=== PATIENT | female | born 1980 | race African-American/Black ===

== ENCOUNTER 2017-04-03 10:30 | Emergency (ER) | payer BC ==
[2017-04-03 10:43] VITALS: BP 129/80; PULSE 100; TEMP 99.1; BMI 38.7
[2017-04-03] MEDS ORDERED: ALBUTEROL SO4 0.083% IH SOL 2.5 MG/3 ML VIAL.NEB. NEB ONE (11:19)
[2017-04-03] MEDS ORDERED: ACETAMINOPHEN 325 MG TABLET (FP) PO ONE (11:19)
--- NOTE | 2017-04-03 11:25 | PDOC ---
History of Present Illness - General Chief Complaint: Cold Symptoms Stated Complaint: FEVER/HEADACHE/COUGHING Time Seen by Provider: 04/03/17 11:07 History Source: Patient Exam Limitations: No Limitations - History of Present Illness Initial Comments: 04/03/17 11:20 37 yr female no PMHX or surgical history with sore throat cough fever headache for 1 day, states felt body aches yesterday . no vomiting no urinary complaints. Severity: reports: mild Past History - Past Medical History Allergies/Adverse Reactions: Allergies Allergy/AdvReac Type Severity Reaction Status Date / Time RAISIN Allergy SWELLING Uncoded 04/03/17 10:39 THROAT CLOSES Home Medications: Ambulatory Orders Benzonatate [Tessalon Pearls -] 100 mg PO TID PRN #21 capsule 04/03/17 Benzonatate [Tessalon Pearls -] 100 mg PO TID PRN #21 capsule 04/03/17 Oseltamivir Phosphate [Tamiflu] 75 mg PO BID #10 capsule 04/03/17 Oseltamivir Phosphate [Tamiflu] 75 mg PO BID #10 capsule 04/03/17 COPD: No Psychiatric Problems: Yes (ANXIETY.) - Immunization History Immunization Up to Date: Yes - Suicide/Smoking/Psychosocial Hx Smoking Status: No Smoking History: Never smoked Have you smoked in the past 12 months: No Number of Cigarettes Smoked Daily: 0 Cigars Per Day: 0 Hx Alcohol Use: No Drug/Substance Use Hx: No Substance Use Type: None Hx Substance Use Treatment: No Respiratory Specific PMHX - Complaint Specific PMHX Angina: No Bronchitis: No Pneumonia: No Pulmonary Embolus: No TB (Tuberculosis): No Review of Systems - Review of Systems Able to Perform ROS?: Yes Is the patient limited Icelandic proficient: No Constitutional: Yes: Symptoms Reported, Fever HEENTM: Yes: Throat Pain Respiratory: Yes: Cough : No: Symptoms Reported Musculoskeletal: No: Symptoms Reported Integumentary: No: Symptoms Reported Neurological: No: Symptoms reported *Physical Exam - Vital Signs Last Vital Signs Temp Pulse Resp BP Pulse Ox 99.1 F 100 H 19 129/80 97 04/03/17 10:39 04/03/17 10:39 04/03/17 10:39 04/03/17 10:39 04/03/17 10:39 - Physical Exam General Appearance: Yes: Nourished, Appropriately Dressed HEENT: positive: EOMI, SNEHA, TMs Normal, Pharyngeal Erythema, Nasal Congestion. negative: Tonsillar Exudate, Tonsillar Erythema Neck: positive: Supple. negative: Tender, Lymphadenopathy (R), Lymphadenopathy (L) Respiratory/Chest: positive: Lungs Clear, Normal Breath Sounds. negative: Chest Tender Cardiovascular: positive: Regular Rhythm, Regular Rate Gastrointestinal/Abdominal: positive: Normal Bowel Sounds, Soft Musculoskeletal: positive: Normal Inspection Extremity: positive: Normal Capillary Refill, Normal Inspection, Normal Range of Motion Integumentary: positive: Normal Color, Dry, Warm Neurologic: positive: Fully Oriented, Alert, Normal Mood/Affect, Normal Response , Motor Strength 07/25 Medical Decision Making - Medical Decision Making 04/03/17 11:23 cc: sore throat cough headache fever non toxic pt took 600mg ibuprofen at 9am for 101 fever most likely flu virus pt did not have the flu shot pt is able to eat and drink *DC/Admit/Observation/Transfer Diagnosis at time of Disposition: Flu-like symptoms, Cough - Discharge Dispostion Disposition: HOME Condition at time of disposition: Good - Prescriptions Prescriptions: Benzonatate [Tessalon Pearls -] 100 mg PO TID PRN #21 capsule PRN Reason: Cough Benzonatate [Tessalon Pearls -] 100 mg PO TID PRN #21 capsule PRN Reason: Cough Oseltamivir Phosphate [Tamiflu] 75 mg PO BID #10 capsule Oseltamivir Phosphate [Tamiflu] 75 mg PO BID #10 capsule - Referrals Referrals: Christian Page MD [Primary Care Provider] - - Patient Instructions Additional Instructions: stay at home and rest avoid crowds and small children take the medication as prescribed increase vitamin C and zinc in your diet take ibuprofen (over the counter motrin, advil or ibuprofen 600mg every 6hrs for fever, body aches and headaches) follow with your primary care doctor in 2-3 days if not improving or worse return to ER for any worsening symptoms or concerns - Post Discharge Activity Forms/Work/School Notes: Back to Work
== END 2017-04-03 12:40 | disposition home or self-care (01) ==
LOC: JERFT 10:30
PROC: 3E0F7GC Introduction of Other Therapeutic Substance into Respiratory Tract, Via Natural or Artificial Opening (ICD-10-PCS; principal; 2017-04-03)
DX: J11.1 Influenza due to unidentified influenza virus with other respiratory manifestations (principal); F41.9 Anxiety disorder, unspecified
CPT/HCPCS: 87070; 87430; 99281-25

== ENCOUNTER 2017-05-04 06:51 | Emergency (ER) | payer BC ==
[2017-05-04 07:10] VITALS: BMI 38.7
[2017-05-04] MEDS ORDERED: ACETAMINOPHEN 1000 MG/100 ML VIAL (NON FORMULARY) IVPB ONE (08:24)
[2017-05-04] MEDS ORDERED: SODIUM CHLORIDE 1,000 ML IV STA (08:24)
[2017-05-04] MEDS ORDERED: OSELTAMIVIR PHOSPHATE 75 MG CAPSULE PO ONE (08:25)
--- NOTE | 2017-05-04 08:37 | PDOC ---
History of Present Illness - General Chief Complaint: Shortness of Breath Stated Complaint: DIFFICULTY BREATHING Time Seen by Provider: 05/04/17 07:11 - History of Present Illness Initial Comments: 05/04/17 08:34 "The patient is a 37 year old female, with a significant past medical history of anxiety, who presents to the emergency department with diffuse body aches, fever, and sore throat since 11PM last night. She states she drank lemon with cain and garlic last night without relief of her symptoms. She reports her throat is slightly sore, but states her muscle aches are worse. She states she had the flu about 3 weeks ago and took Tamiflu and Tylenol with resolution of her symptoms. She states her symptoms today are similar. The patient denies chest pain and dizziness. The patient denies fever, chills, nausea, vomit, diarrhea and constipation. The patient denies dysuria, frequency, urgency and hematuria. Allergies: NKDA Past surgical history: none reported Social history: Pt denies toxic habits " Past History - Past Medical History Allergies/Adverse Reactions: Allergies Allergy/AdvReac Type Severity Reaction Status Date / Time No Known Drug Allergies Allergy Verified 05/04/17 07:07 RAISIN Allergy SWELLING Uncoded 04/03/17 10:39 THROAT CLOSES Home Medications: Ambulatory Orders Benzonatate [Tessalon Pearls -] 100 mg PO TID PRN #21 capsule 04/03/17 Benzonatate [Tessalon Pearls -] 100 mg PO TID PRN #21 capsule 04/03/17 Oseltamivir Phosphate [Tamiflu] 75 mg PO BID #10 capsule 04/03/17 Oseltamivir Phosphate [Tamiflu] 75 mg PO BID #10 capsule 04/03/17 COPD: No Psychiatric Problems: Yes (Anxiety) - Immunization History Immunization Up to Date: Yes - Suicide/Smoking/Psychosocial Hx Smoking Status: No Smoking History: Never smoked Have you smoked in the past 12 months: No Number of Cigarettes Smoked Daily: 0 Cigars Per Day: 0 Information on smoking cessation initiated: No Hx Alcohol Use: No Drug/Substance Use Hx: No Substance Use Type: None Hx Substance Use Treatment: No Respiratory Specific PMHX - Complaint Specific PMHX Angina: No Bronchitis: No Pneumonia: No Pulmonary Embolus: No TB (Tuberculosis): No Review of Systems - Review of Systems Comments:: 05/04/17 08:36 """GENERAL/CONSTITUTIONAL: No fever or chills. No weakness. HEAD, EYES, EARS, NOSE AND THROAT: (+) sore throat. No change in vision. No ear pain or discharge. CARDIOVASCULAR: No chest pain or shortness of breath. RESPIRATORY: No SOB. No cough, wheezing, or hemoptysis. GASTROINTESTINAL: No nausea, vomiting, diarrhea or constipation. GENITOURINARY: No dysuria, frequency, or change in urination. MUSCULOSKELETAL: (+) diffuse muscle aches. No joint or muscle swelling. No neck or back pain. SKIN: No rash NEUROLOGIC: No headache, No vertigo, loss of consciousness, or change in strength/sensation. ENDOCRINE: No increased thirst. No abnormal weight change. HEMATOLOGIC/LYMPHATIC: No anemia, easy bleeding, or history of blood clots. ALLERGIC/IMMUNOLOGIC: No hives or skin allergy. """ *Physical Exam - Vital Signs Last Vital Signs Temp Pulse Resp BP Pulse Ox 99.7 F H 108 H 20 80/42 95 05/04/17 07:08 05/04/17 07:08 05/04/17 07:08 05/04/17 07:08 05/04/17 07:08 - Physical Exam Comments: 05/04/17 08:36 """GENERAL: Awake, alert, and fully oriented, in no acute distress HEAD: No signs of trauma EYES: PERRLA, EOMI, sclera anicteric, conjunctiva clear ENT: Auricles normal inspection, hearing grossly normal, nares patent, oropharynx clear without exudates. Moist mucosa NECK: Nontender, no stepoffs, Normal ROM, supple, no lymphadenopathy, JVD, or masses LUNGS: Breath sounds equal, clear to auscultation bilaterally. No wheezes, and no crackles HEART: Regular rate and rhythm, normal S1 and S2, no murmurs, rubs or gallops ABDOMEN: Soft, nontender, normoactive bowel sounds. No guarding, no rebound. No masses EXTREMITIES: Normal range of motion, no edema. No clubbing or cyanosis. No cords, erythema, or tenderness NEUROLOGICAL: Cranial nerves II through XII intact. 5/5 strength and sensation in all extremities, Normal speech, normal gait SKIN: Warm, Dry, normal turgor, no rashes or lesions noted. """ ED Treatment Course - LABORATORY CBC & Chemistry Diagram: 05/04/17 08:44 05/04/17 08:44 Medical Decision Making - Medical Decision Making 05/04/17 08:36 37 F with bodyaches, sore throat, fever. Likely flu vs viral URI. Will r/o strep given pharyngitis and fever. - Labs, rapid strep/throat culture - IVF, tylenol - No more flu swabs available in ED, will empirically tx with tamiflu as symptoms began < 24 hours ago 05/04/17 09:21 Labs wnl Rapid strep + Discussed tx options with pt, who opts for penicillin G IM. Pt well appearing, tolerating PO. clinically stable for DC. Pt requesting new PMD, will provide phone number for internal medicine I discussed the physical exam findings, ancillary test results and final diagnoses with the patient. I answered all of the patient's questions. The patient was satisfied with the care received and felt comfortable with the discharge plan and treatment plan. The patient agrees to follow up with the primary care physician within 24-72 hours. *DC/Admit/Observation/Transfer Diagnosis at time of Disposition: Strep pharyngitis - Discharge Dispostion Disposition: HOME - Referrals Referrals: Christian Page MD [Primary Care Provider] - Rusty Mcallister MD [Staff Physician] - - Patient Instructions Printed Discharge Instructions: DI for Strep Throat Additional Instructions: You have strep throat. We gave you a shot of penicillin to treat it. If you continue to feel ill after 48 hours, or if you have worsening pain, fevers, or any other concerning symptoms, return to the ER immediately. Otherwise, follow up with your primary care doctor within 1 week for a check up. You can call the number provided to make an appointment with our internal medicine clinic. - Post Discharge Activity Forms/Work/School Notes: Back to Work - Attestations Physician Attestion: 05/04/17 09:24 I, Dr. Scar Sanchez MD, attest that this document has been prepared under my direction and personally reviewed by me in its entirety. I further attest, that it accurately reflects all work, treatment, procedures and medical decision -making performed by me.
[2017-05-04] MEDS ORDERED: OSELTAMIVIR PHOSPHATE 75 MG CAPSULE ONE (08:49)
[2017-05-04 08:50] LABS: BASO % 0.2 % (0-2.0); EOS % 0.2 % (0-4.5); HEMATOCRIT 39.6 % (32.4-45.2); HEMOGLOBIN 12.9 GM/dL (10.7-15.3); LYMPH % 6.8 % (8-40); MCH 27.2 pg (25.7-33.7); MCHC 32.5 g/dl (32.0-36.0); MEAN CELL VOLUME 83.7 fl (80-96); MEAN PLT VOLUME 8.1 fl (7.5-11.1); MONO % 5.6 % (3.8-10.2); NEUT % 87.2 % (42.8-82.8); PLATELET COUNT 282 K/MM3 (134-434); RBC 4.73 M/mm3 (3.60-5.2); RDW 14.1 % (11.6-15.6); WHITE BLOOD COUNT 13.1 K/mm3 (4.0-10.0)
[2017-05-04] MEDS ORDERED: ACETAMINOPHEN INJECTION 100 ML IVPB ONE (08:50)
[2017-05-04 09:15] LABS: ALBUMIN 3.9 g/dl (3.4-5.0); ALK PHOS 62 U/L (45-117); ANION GAP 8 (8-16); BILIRUBIN,TOTAL 0.4 mg/dL (0.2-1.0); BLOOD UREA NITROGEN 11 mg/dL (7-18); CALCIUM 8.5 mg/dL (8.5-10.1); CHLORIDE 103 mmol/L (98-107); CO2 23 mmol/L (21-32); CREATININE 0.8 mg/dL (0.55-1.02); GLUCOSE,RANDOM 89 mg/dL (74-106); POTASSIUM 4.2 mmol/L (3.5-5.1); SGOT/AST 23 U/L (15-37); SGPT/ALT 35 U/L (12-78); SODIUM 134 mmol/L (136-145); TOT PROT 7.3 g/dl (6.4-8.2)
[2017-05-04] MEDS ORDERED: PENICILLIN G BENZATHINE 1,200,000 UNIT/2 ML PFS IM ONE (09:20)
[2017-05-04 11:30] VITALS: BP 114/75; PULSE 89; TEMP 99.5
--- NOTE | 2017-05-04 23:20 | EKG ---
Test Reason : Blood Pressure : / mmHG Vent. Rate : 100 BPM Atrial Rate : 100 BPM P-R Int : 144 ms QRS Dur : 080 ms QT Int : 316 ms P-R-T Axes : 058 057 042 degrees QTc Int : 407 ms NORMAL SINUS RHYTHM NORMAL ECG WHEN COMPARED WITH ECG OF 09-JUN-2015 14:14, NO SIGNIFICANT CHANGE WAS FOUND Confirmed by LEONEL DOSHI MD ([id number]) on 05/04/2017 11:20:23 PM Referred By: Confirmed By:LEONEL DOSHI MD
== END 2017-05-04 11:28 | disposition home or self-care (01) ==
LOC: JER 06:51
PROC: 3E0337Z Introduction of Electrolytic and Water Balance Substance into Peripheral Vein, Percutaneous Approach (ICD-10-PCS; principal; 2017-05-04)
PROC: 3E033NZ Introduction of Analgesics, Hypnotics, Sedatives into Peripheral Vein, Percutaneous Approach (ICD-10-PCS; 2017-05-04)
PROC: 3E02329 Introduction of Other Anti-infective into Muscle, Percutaneous Approach (ICD-10-PCS; 2017-05-04)
DX: J02.0 Streptococcal pharyngitis (principal); B95.0 Streptococcus, group A, as the cause of diseases classified elsewhere
CPT/HCPCS: 36415; 80053; 85025; 87070; 87077; 87430; 93005; 93010; 99283-25

== ENCOUNTER 2018-07-16 07:33 | Emergency (ER) | payer BC ==
[2018-07-16 07:48] VITALS: BP 146/86; PULSE 76; TEMP 97.8; BMI 39.2
--- NOTE | 2018-07-16 09:01 | PDOC ---
History of Present Illness - General Chief Complaint: Cold Symptoms Stated Complaint: COUGH,WHEEZING Time Seen by Provider: 07/16/18 08:17 History Source: Patient Exam Limitations: No Limitations - History of Present Illness Initial Comments: 07/16/18 08:58 HISTORY OF PRESENT ILLNESS: 38-year-old woman denies medical history presents emergency department for evaluation of dry cough for 6 days which worsens while outdoors. Patient reports and she is outdoors in breathing just increased coughing which is causing her some pleuritic pain. Patient has been taking azithromycin from her previous doctor's visit that she did not take at that time. She denies any fevers, chills, shortness of breath. No recent travel or sick contacts. PAST MEDICAL HISTORY: Denies past medical history SURGICAL HISTORY: Denies ALLERGIES: No known drug allergies REVIEW OF SYSTEMS General/Constitutional: Denies fever or chills. Denies weakness, weight change. HEENT: Denies change in vision. Denies ear pain or discharge. Denies sore throat. Cardiovascular: Denies chest pain or shortness of breath. Respiratory: see HPI Gastrointestinal: Denies nausea, vomiting, diarrhea or constipation. Denies rectal bleeding. Genitourinary: Denies dysuria, frequency, or change in urination. Musculoskeletal: Denies joint or muscle swelling or pain. Denies neck or back pain. Skin and breasts: Denies rash or easy bruising. Neurologic: Denies headache, vertigo, loss of consciousness, or loss of sensation. Psychiatric: Denies depression or anxiety. Endocrine: Denies increased thirst. Denies abnormal weight change. Hematologic/Lymphatic: Denies anemia, easy bleeding, or history of blood clots. Allergic/Immunologic: Denies hives or skin allergy. Denies latex allergy. PHYSICAL EXAM General Appearance: Well-appearing, appropriately dressed. No apparent distress , no intoxication. HEENT: EOMI, PERRLA, normal ENT inspection, normal voice, TMs normal, pharynx normal. No conjunctival pallor. No photophobia, scleral icterus. Neck: Supple. Trachea midline. No tenderness, rigidity, carotid bruit, stridor , lymphadenopathy, or thyromegaly. Respiratory/Chest: Lungs CTAB. No shortness of breath, chest tenderness, respiratory distress, accessory muscle use. No crackles, rales, rhonchi, stridor , wheezing, dullness. Speaking full sentences. Cardiovascular: RRR. S1, S2. No JVD, murmur, bradycardia, tachycardia. Past History - Past Medical History Allergies/Adverse Reactions: Allergies Allergy/AdvReac Type Severity Reaction Status Date / Time No Known Drug Allergies Allergy Verified 07/16/18 07:42 RAISIN Allergy SWELLING Uncoded 07/16/18 07:42 THROAT CLOSES Home Medications: Ambulatory Orders Albuterol Sulfate Inhaler - [Ventolin HFA Inhaler -] 1 - 2 inh PO Q4H #1 inhaler 07/16/18 COPD: No Psychiatric Problems: Yes (ANXIETY.) - Immunization History Immunization Up to Date: No - Suicide/Smoking/Psychosocial Hx Smoking Status: No Smoking History: Never smoked Have you smoked in the past 12 months: No Number of Cigarettes Smoked Daily: 0 Cigars Per Day: 0 Hx Alcohol Use: No Drug/Substance Use Hx: No Substance Use Type: None Hx Substance Use Treatment: No Respiratory Specific PMHX - Complaint Specific PMHX Angina: No Bronchitis: No Pneumonia: No Pulmonary Embolus: No TB (Tuberculosis): No *Physical Exam - Vital Signs Last Vital Signs Temp Pulse Resp BP Pulse Ox 97.8 F 76 18 146/86 97 07/16/18 07:44 07/16/18 07:44 07/16/18 07:44 07/16/18 07:44 07/16/18 07:44 Medical Decision Making - Medical Decision Making 07/16/18 09:00 A/P: 38-year-old woman with dry cough which worsens while outdoors This patient is not exhibiting any infectious symptoms and has not been febrile this is likely ALLERGIC in nature. Supportive treatment is been discussed with the patient is verbalized understanding of discharge instructions. I'll give the patient a prescription for albuterol MDI to assist with coughing. Patient is verbalizes understanding of discharge instructions and was satisfied with the care received. *DC/Admit/Observation/Transfer Diagnosis at time of Disposition: Irritable airways - Discharge Dispostion Disposition: HOME Condition at time of disposition: Stable Decision to Admit order: No - Prescriptions Prescriptions: Albuterol Sulfate Inhaler - [Ventolin HFA Inhaler -] 1 - 2 inh PO Q4H #1 inhaler - Referrals Referrals: Amy Fenton MD [Staff Physician] - - Patient Instructions Additional Instructions: Rest, drink lots of fluids: Teas, water, soups Saltwater gargles. Consider humidifier in room at night Steamy showers/seem to face break up mucus Avoid contact with allergens, exposure to pollens, close windows on a windy day Lots of handwashing and good hygiene Continue [id number] medications for symptomatic relief- may use allergic eyedrops for itching I Continue antihistamines daily until pollen season is over; Zyrtec, Claritin, Alexa during the daytime and Benadryl at nighttime as will make sleepy Tylenol or Motrin for fever and pain Followup with private physician in one to 2 days as needed Consider following up with an rubber molder/charge authorizer for skin testing and possible allergy shots Return to emergency department for worsened symptoms, fevers, dehydration - Post Discharge Activity
== END 2018-07-16 09:01 | disposition home or self-care (01) ==
LOC: JERFT 07:33 → JER 07:33 → JERFT 09:01
DX: J45.909 Unspecified asthma, uncomplicated (principal)
CPT/HCPCS: 99281-25

== ENCOUNTER 2021-06-03 13:30 | Emergency (ER) | payer BC ==
[2021-06-03 13:58] VITALS: BP 138/83; PULSE 78; TEMP 98.4; BMI 35.3
[2021-06-03] MEDS ORDERED: ACETAMINOPHEN 1000 MG/100 ML BAG IVPB ONE (14:43)
[2021-06-03 14:50] LABS: BASO % 0.7 % (0-2.0); EOS % 1.6 % (0-4.5); HEMATOCRIT 40.6 % (32.4-45.2); HEMOGLOBIN 13.8 GM/dL (10.7-15.3); LYMPH % 33.4 % (8-40); MCH 29.7 pg (25.7-33.7); MCHC 34.1 g/dl (32.0-36.0); MEAN PLT VOLUME 7.8 fl (7.5-11.1); MONO % 7.3 % (3.8-10.2); PLATELET COUNT 324 10^3/uL (134-434); RBC 4.67 M/mm3 (3.60-5.2); RDW 13.5 % (11.6-15.6); WHITE BLOOD COUNT 6.3 K/mm3 (4.0-10.0)
[2021-06-03 15:13] LABS: CALCIUM 9.6 mg/dL (8.5-10.1)
[2021-06-03] MEDS ORDERED: ACETAMINOPHEN INJECTION 100 ML IVPB ONE (15:13)
[2021-06-03 15:14] LABS: ALBUMIN 4.3 g/dl (3.4-5.0); BLOOD UREA NITROGEN 7.2 mg/dL (7-18); MAGNESIUM 2.4 mg/dL (1.8-2.4)
[2021-06-03 15:16] LABS: CREATININE 0.8 mg/dL (0.55-1.3)
[2021-06-03 15:18] LABS: BILIRUBIN,TOTAL 0.2 mg/dL (0.2-1); TOT PROT 7.7 g/dl (6.4-8.2)
[2021-06-03 15:53] LABS: URINE APPEARANCE CLEAR; URINE BILIRUBIN NEGATIVE (NEGATIVE); URINE COLOR YELLOW; URINE GLUCOSE (UA) NEGATIVE (NEGATIVE); URINE KETONE NEGATIVE (NEGATIVE); URINE LEUK ESTERASE NEGATIVE (NEGATIVE); URINE NITRITE NEGATIVE (NEGATIVE); URINE PROTEIN NEGATIVE (NEGATIVE); URINE UROBILINOGEN 0.2 mg/dL (0.2-1.0)
== END 2021-06-03 18:42 | disposition home or self-care (01) ==
LOC: JER 13:30
PROC: 3E033GC Introduction of Other Therapeutic Substance into Peripheral Vein, Percutaneous Approach (ICD-10-PCS; principal; 2021-06-03)
DX: R42 Dizziness and giddiness (principal)
CPT/HCPCS: 36415; 70450-TC; 71045-TC-FY; 80053; 81003; 82962; 83735; 84443; 84703; 85025; 87086; 87186; 93005; 93010; 99285-25

== ENCOUNTER 2021-06-08 11:43 | Emergency (ER) | payer BC ==
[2021-06-08 11:58] VITALS: BP 131/86; PULSE 90; TEMP 97.9; BMI 35.2
== END 2021-06-08 13:01 | disposition home or self-care (01) ==
LOC: JERFT 11:43
DX: F41.9 Anxiety disorder, unspecified (principal)
CPT/HCPCS: 93005; 93010; 99283-25

== ENCOUNTER 2021-08-29 15:10 | Emergency (ER) | payer BC ==
[2021-08-29 15:29] VITALS: BP 133/77; PULSE 86; TEMP 98.1; BMI 37.1
== END 2021-08-29 16:14 | disposition home or self-care (01) ==
LOC: JER 15:10 → JERFT 15:10
DX: B35.1 Tinea unguium (principal)
CPT/HCPCS: 99282-25

== ENCOUNTER 2021-11-18 17:32 | Emergency (ER) | payer BC ==
[2021-11-18 17:42] VITALS: BP 159/79; PULSE 127; RESP 18; TEMP 97.9; BMI 37.3
[2021-11-18] MEDS ORDERED: KETOROLAC TROMETHAMINE 30 MG/1 ML VIAL IM ONE (19:11)
[2021-11-18 20:06] LABS: EPI CELLS 15 /uL (0-25.1); HYALINE CASTS 8 /uL (0-3.1); PH,URINE 5.5 (5.0-8.0); URINE APPEARANCE CLOUDY; URINE BACTERIA 50 /uL (0-1359); URINE BILIRUBIN NEGATIVE (NEGATIVE); URINE COLOR YELLOW; URINE GLUCOSE (UA) NEGATIVE (NEGATIVE); URINE KETONE TRACE (NEGATIVE); URINE LEUK ESTERASE NEGATIVE (NEGATIVE); URINE NITRITE NEGATIVE (NEGATIVE); URINE PROTEIN 1+ (NEGATIVE); URINE RBC 18 /uL (0-23.9); URINE UROBILINOGEN 0.2 mg/dL (0.2-1.0); URINE WBC 7 /uL (0-25.8)
[2021-11-18] MEDS ORDERED: KETOROLAC TROMETHAMINE 30 MG/1 ML VIAL ONE (20:06)
[2021-11-18 20:20] LABS: HCG,QUALITATIVE URINE Negative
== END 2021-11-18 21:49 | disposition home or self-care (01) ==
LOC: JERFT 17:32 → JER 17:32 → JERFT 21:49
PROC: 3E0233Z Introduction of Anti-inflammatory into Muscle, Percutaneous Approach (ICD-10-PCS; principal; 2021-11-18)
DX: M79.661 Pain in right lower leg (principal); Y04.0XXA Assault by unarmed brawl or fight, initial encounter
CPT/HCPCS: 81003; 84703; 99284-25

== ENCOUNTER 2021-12-16 22:06 | Emergency (ER) | payer BC ==
[2021-12-16 22:13] VITALS: BMI 37.1
[2021-12-16] MEDS ORDERED: ASPIRIN 81 MG CHEWABLE TABLETS PO ONE (22:55)
[2021-12-16] MEDS ORDERED: LORATADINE 10 MG TABLET PO ONE (22:57)
[2021-12-16] MEDS ORDERED: MECLIZINE HCL 25 MG TABLET (FP) PO ONE (22:58)
[2021-12-16] MEDS ORDERED: LORATADINE 10 MG TABLET ONE (23:02)
[2021-12-16] MEDS ORDERED: MECLIZINE HCL 25 MG TABLET (FP) ONE (23:02)
[2021-12-16 23:17] LABS: BASO % 0.7 % (0-2.0); EOS % 4.3 % (0-4.5); HEMATOCRIT 38.7 % (32.4-45.2); LYMPH % 30.2 % (8-40); MCH 28.9 pg (25.7-33.7); MCHC 33.5 g/dl (32.0-36.0); MEAN CELL VOLUME 86.4 fl (80-96); MEAN PLT VOLUME 7.6 fl (7.5-11.1); MONO % 10.7 % (3.8-10.2); NEUT % 54.1 % (42.8-82.8); PLATELET COUNT 313 10^3/uL (134-434); RBC 4.49 M/mm3 (3.60-5.2); RDW 14.9 % (11.6-15.6); WHITE BLOOD COUNT 7.7 K/mm3 (4.0-10.0)
[2021-12-16 23:23] LABS: INR 1.14 (0.83-1.09); PROTHROMBIN TIME (PATIENT) 13.1 SEC (9.7-13.0)
[2021-12-16 23:38] LABS: ALBUMIN 4.1 g/dl (3.4-5.0); BLOOD UREA NITROGEN 9.7 mg/dL (7-18); CALCIUM 8.9 mg/dL (8.5-10.1); MAGNESIUM 2.4 mg/dL (1.8-2.4)
[2021-12-16 23:41] LABS: CREATININE 0.8 mg/dL (0.55-1.3)
[2021-12-16 23:43] LABS: BILIRUBIN,TOTAL 0.3 mg/dL (0.2-1); TOT PROT 7.6 g/dl (6.4-8.2)
[2021-12-17 01:22] VITALS: BP 129/73; PULSE 70; RESP 18; TEMP 98.6
== END 2021-12-17 01:13 | disposition home or self-care (01) ==
LOC: JERFT 22:06
DX: J06.9 Acute upper respiratory infection, unspecified (principal); R07.9 Chest pain, unspecified
CPT/HCPCS: 0241U-QW; 36415; 71046-TC-FY; 80053; 83735; 84484; 85025; 85610; 85730; 93005; 93010; 99285-25

== ENCOUNTER 2022-06-29 02:36 | Emergency (ER) | payer BC ==
[2022-06-29 02:44] VITALS: BP 132/81; PULSE 87; RESP 18; TEMP 98.1; BMI 38.7
[2022-06-29] MEDS ORDERED: diphenhydrAMINE HCL 25 MG CAPSULE (FP) PO ONE ×2 (03:16→03:30)
== END 2022-06-29 04:22 | disposition home or self-care (01) ==
LOC: JER 02:36
DX: F41.9 Anxiety disorder, unspecified (principal); R20.2 Paresthesia of skin
CPT/HCPCS: 99283-25

== ENCOUNTER 2023-09-24 18:57 | Emergency (ER) | payer BC ==
[2023-09-24 19:02] VITALS: PULSE 90; RESP 20; TEMP 98.9; BMI 40.3
[2023-09-24 19:51] LABS: THROAT:GRP A STREP NOT DETECTED (NOTDETECTED)
[2023-09-24] MEDS: IBUPROFEN 600 MG TABLET (FP) PO ONE (19:51)
[2023-09-24] MEDS ORDERED: IBUPROFEN 600 MG TABLET (FP) PO ONE (19:51)
[2023-09-24 20:21] VITALS: BP 140/81
== END 2023-09-24 20:22 | disposition home or self-care (01) ==
LOC: JERFT 18:57
DX: U07.1 COVID-19 (principal); I10 Essential (primary) hypertension; R50.9 Fever, unspecified; R51.9 Headache, unspecified; R05.9 Cough, unspecified; R09.81 Nasal congestion
CPT/HCPCS: 0241U-QW; 71046-TC-FY; 84703; 87651; 99284-25

== ENCOUNTER 2023-12-14 12:44 | Emergency (ER) | payer BC ==
[2023-12-14 13:06] VITALS: BP 145/56; PULSE 81; RESP 17; TEMP 98.4; BMI 40.3
[2023-12-14 14:21] LABS: BASO % 0.9 % (0-2.0); EOS % 2.1 % (0-4.5); HEMATOCRIT 42.5 % (32.4-45.2); MCH 28.8 pg (25.7-33.7); MEAN CELL VOLUME 87.1 fl (80-96); MEAN PLT VOLUME 7.9 fl (7.5-11.1); PLATELET COUNT 346 10^3/uL (134-434); RBC 4.88 M/mm3 (3.60-5.2); RDW 14.3 % (11.6-15.6); WHITE BLOOD COUNT 8.3 K/mm3 (4.0-10.0)
[2023-12-14 15:21] LABS: POTASSIUM 4.9 mmol/L (3.5-5.1)
[2023-12-14 15:28] LABS: BLOOD UREA NITROGEN 7.9 mg/dL (7-18); CALCIUM 9.1 mg/dL (8.5-10.1)
[2023-12-14 15:32] LABS: CREATININE 0.8 mg/dL (0.55-1.3)
[2023-12-14 15:33] LABS: BILIRUBIN,TOTAL 0.5 mg/dL (0.2-1); TOT PROT 7.8 g/dl (6.4-8.2)
[2023-12-14 15:48] LABS: HIV INTERPRETATION NEGATIVE (NEGATIVE)
== END 2023-12-14 18:05 | disposition home or self-care (01) ==
LOC: JER 12:44
DX: R07.2 Precordial pain (principal); M54.2 Cervicalgia; M79.89 Other specified soft tissue disorders
CPT/HCPCS: 36415; 71046-TC-FY; 80053; 84439; 84443; 84484; 85025; 86803; 87389; 93005; 93010; 99285-25